=== PATIENT | female | born 1955 | race Caucasian/White ===

== ENCOUNTER 2022-05-24 11:43 | Day surgery (SDC) | payer MEDICARE, MEDICAID ==
[~2022-05-24] VITALS: Ht 154.9 cm; Wt 65.3 kg
[2022-05-24] MEDS ORDERED: MIDAZolam 1mg/ml 10ml vial IV ONE (12:10)
[2022-05-24] MEDS ORDERED: normal saline 1000ml 1,000 ML IV SCH (12:10)
[2022-05-24] MEDS ORDERED: fentaNYL/PF 50MCG/1 ML 2ML syringe IV ONE (12:10)
[2022-05-24] MEDS ORDERED: CHOL100040 PO (12:12)
[2022-05-24] MEDS ORDERED: TRIA1CAP88 PO (12:12)
[2022-05-24] MEDS ORDERED: AMLO10TA13 PO (12:12)
[2022-05-24] MEDS ORDERED: WARF-55 PO (12:12)
[2022-05-24] MEDS ORDERED: FLUO-1 PO (12:12)
[2022-05-24] MEDS ORDERED: ATOR10TA70 PO (12:12)
[2022-05-24 12:13] VITALS: BP 115/86
[2022-05-24 12:48] LABS: BASOPHILS % (AUTO) 0.5 % (0-1); EOSINOPHILS % (AUTO) 0.7 % (0-6); HEMATOCRIT 45.3 % (35.0-45.0); HEMOGLOBIN 15.1 g/dl (12.0-16.0); LYMPHOCYTES # (AUTO) 1.3 X10'3 (1.1-4.8); LYMPHOCYTES % (AUTO) 25.2 % (21-51); MEAN CORPUSCULAR HEMOGLOBIN 31.8 PG (27.0-31.0); MEAN CORPUSCULAR HGB CONC 33.3 g/dL (33.0-36.5); MEAN CORPUSCULAR VOLUME 95.3 FL (78-98); MEAN PLATELET VOLUME 7.8 FL (7.4-10.4); MONOCYTES # (AUTO) 0.3 X10'3 (0-0.9); MONOCYTES % (AUTO) 5.7 % (2-12); NEUTROPHILS # (AUTO) 3.5 X10'3 (1.8-7.7); NEUTROPHILS % (AUTO) 67.9 % (42-75); PLATELET COUNT 200 X10'3 (140-440); RED BLOOD COUNT 4.75 X10'6 (4.20-5.60); RED CELL DISTRIBUTION WIDTH 13.5 % (11.5-14.5); WHITE BLOOD COUNT 5.2 X10'3 (4.5-11.0)
[2022-05-24 13:04] LABS: ALBUMIN 3.8 G/DL (3.4-5.0); ANION GAP 7 (8-16); BLOOD UREA NITROGEN 24 MG/DL (7-18); BUN/CREATININE RATIO 12.8 (6.6-38.0); CALCIUM 10.2 MG/DL (8.5-10.1); CHLORIDE 102 MMOL/L (99-107); CREATININE 1.88 MG/DL (0.40-0.90); GLUCOSE 96 MG/DL (70-104); MAGNESIUM 1.9 MG/DL (1.5-2.4); POTASSIUM 3.5 MMOL/L (3.5-5.1); SODIUM 138 MMOL/L (135-145); TOTAL CARBON DIOXIDE 29.5 MMOL/L (24-32); eGFR 27 ML/MIN
[2022-05-24 13:20] VITALS: BP 127/77
[2022-05-24 13:22] VITALS: BP 126/72
[2022-05-24 13:33] VITALS: BP 121/68
[2022-05-24 13:40] VITALS: BP 125/82
[2022-05-24 13:50] VITALS: BP 125/51
[2022-05-24] MEDS ORDERED: FLU VACC QS2022-23(6MOS UP)/PF 60 MCG/0.5 ML SYRINGE IMVAC ONE (20:50)
== END 2022-05-24 14:30 | disposition home or self-care (01) ==
LOC: SSTAY O 11:43
PROVIDERS: ATTEND Internal Medicine Cardiovascular Disease
DX: I48.91 Unspecified atrial fibrillation (principal); I10 Essential (primary) hypertension; E78.00 Pure hypercholesterolemia, unspecified; Z79.01 Long term (current) use of anticoagulants; Z98.890 Other specified postprocedural states; Z79.899 Other long term (current) drug therapy
CPT/HCPCS: 36415; 80048; 83735; 85025; 85610; 92960; 93005; J2250; J3010; J7030; A4620